=== PATIENT | male | born 1955 | race Caucasian/White ===

== ENCOUNTER → 2017-02-18 | Day surgery (SDC) | payer MEDICARE ==
[~2017-02-18] MED LIST: AMITRIPTYLINE H25 MG PO; AMLODIPINE-OLM1 EAC1 PO; ATORVASTATIN CA20 MG PO; AZOR 10/20 MG T1 TAB PO; LOTREL 10-20 MG1 CAP PO; OMEPRAZOLE20 M2 PO; PRILOSEC40 MG PO; [UNRECOGNIZED DRUG - OTHER]
--- NOTE | ~2017-02-18 | OR ---
Unit #: [id number] #: [id number] Patient: EFRAIN CARVER [id number] [place], [place] [address] [id number] O MR#: [id number] NAME: EFRAIN CARVER. ROOM: Date of Procedure: 02/18/2017 Admission Date: 02/18/2017 Surgeon: Austin Stone M.D. : 1955 Attending Physician: Austin Stone M.D. Primary Care Physician: Ron Nichole M.D. OPERATIVE REPORT PREOPERATIVE DIAGNOSES The patient has presented for colorectal cancer surveillance. He has personal history of removal of colonic adenomas. PROCEDURES PERFORMED Colonoscopy and polypectomy. POSTOPERATIVE DIAGNOSES 1. The patient had a total of six polyps, three in the sigmoid colon, one in the rectum, one in the descending colon, and one in the ascending colon. The polyps ranged in size from 5 mm to a centimeter each. All were removed using snare cautery polypectomy. They were retrieved and sent for histology. 2. Mild sigmoid and descending colon diverticulosis. 3. Rest of the examination up to cecum was normal. The quality of the prep was excellent. RECOMMENDATIONS Follow up the results of polyp histology and consider repeat colonoscopy in 5 years. SEDATION USED MAC. DESCRIPTION OF PROCEDURE Following detailed explanation of potential risks and complications of a colonoscopy, namely perforation, bleeding, and complications related to sedation, the patient was brought to GI lab and laid in the left lateral decubitus position. A digital rectal examination was performed, which was normal. Lubricated tip of the Olympus video colonoscope was inserted through the anus and advanced under direct vision. The scope was advanced past rectosigmoid into descending colon. Multiple small diverticula were noted in this area. In addition, small polyps were also noted along the way. The scope tip was then navigated all the way up to cecum with visualization of the ileocecal valve and the appendiceal orifice. Preparation was excellent with good visualization and photodocumentation was obtained. Successive segments of the colonic mucosa were examined upon withdrawal. Multiple polyps were seen along the way. There was one polyp in the ascending colon, one in descending colon, three in the sigmoid colon, and one in the rectum. The polyps ranged in size from 5 mm to a centimeter each. The largest polyp being in the sigmoid. In addition, the rectal polyp was also noted and removed along with other Unit #: [id number] #: [id number] Patient: EFRAIN CARVER polyps. No additional polyps were noted. Other than the scant diverticula seen in the left side, no other abnormalities were noted. The patient did not have any hemorrhoids at the anal verge. The scope was then withdrawn and the patient returned to the recovery area. He tolerated the procedure without any postprocedure complications. Dictated by... Freya Benedict/carlos TD: 02/18/2017 11:39 JOB #: [id number] OPERATIVE REPORT Page 1 of 1 X Austin Stone MD X PROCEDURE OPERATIVE NOTE
== END | disposition home or self-care (01) ==
LOC: COPS 06:35
DX: Z12.11 Encounter for screening for malignant neoplasm of colon (principal); D12.2 Benign neoplasm of ascending colon; D12.4 Benign neoplasm of descending colon; K63.5 Polyp of colon; K62.1 Rectal polyp; I10 Essential (primary) hypertension; I73.9 Peripheral vascular disease, unspecified; K57.30 Diverticulosis of large intestine without perforation or abscess without bleeding; K21.9 Gastro-esophageal reflux disease without esophagitis; M19.90 Unspecified osteoarthritis, unspecified site; Z86.010 Personal history of colon polyps; Z79.899 Other long term (current) drug therapy; Z89.512 Acquired absence of left leg below knee; Z89.612 Acquired absence of left leg above knee; Z90.81 Acquired absence of spleen
CPT/HCPCS: 88305

== ENCOUNTER → 2017-05-18 | Outpatient (CLI) | payer MEDICARE ==
--- NOTE | ~2017-05-18 | US77 ---
[facility] of [facility] RADIOLOGY TEXT RESULTS PATIENT: EFRAIN CARVER LOCATION: [facility] : 57 UNIT #: [id number] AGE: [address]: Steve Denny MD SEX: M ORDER DR: [id number] [facility]. [place], [place] [address] [id number] O MR#: [id number] Acc #: [id number] NAME: EFRAIN CARVER : 1955 SEX: M STUDY DATE/TIME: 05/18/2017 14:36 UNIT: CGUS ROOM: STUDY DESCRIPTION: US Kidney Bilateral Complete Attending Physician: Steve Denny M.D. Referring Physician: Ron Nichole M.D. Ordering Physician: Steve Denny M.D. Primary Care Physician: Ron Nichole M.D. MEDICAL IMAGING REPORT This report is preliminary unless electronic signature is present EXAM Bilateral renal ultrasound HISTORY Stage III chronic kidney disease. FINDINGS Ultrasound examination of both kidneys demonstrates severe generalized right renal parenchymal atrophy, measuring close to 6 cm in length. There is also moderate to moderately severe generalized left renal parenchymal atrophy, with particular thinning of the lower pole left renal cortex. No hydronephrosis. No perinephric stranding. The bladder was not visible as the patient had apparently recently voided. IMPRESSION 1. No hydronephrosis. 2. Severe right renal parenchymal atrophy. 3. Mild left renal parenchymal atrophy with cortical thinning in the lower pole. 4. Urinary bladder was not visible. Dictated by... Rupert Reilly M.D. THIS IS AN ELECTRONICALLY VERIFIED REPORT Rupert Reilly M.D. at 05/19/2017 2:26 PM LAN/yeny TD: 05/19/2017 11:02 JOB #: [id number] MEDICAL IMAGING REPORT [facility] RADIOLOGY TEXT RESULTS PATIENT: EFRAIN CARVER LOCATION: [facility] : 57 UNIT #: [id number] AGE: [address]: Steve Denny MD SEX: M ORDER DR: Page 1 of 1 COPY
[2017-05-18 15:26] LABS: URINE APPEARANCE CLEAR; URINE BILIRUBIN NEG (NEG); URINE BLOOD NEG (NEG); URINE COLOR YELLOW; URINE GLUCOSE NEG (NEG); URINE KETONE NEG (NEG); URINE LEUKOCYTE ESTERASE NEG (NEG); URINE NITRATE NEG (NEG); URINE PROTEIN NEG (NEG); URINE SPECIFIC GRAVITY 1.014 (1.003-1.035); URINE UROBILINOGEN 0.2 MG/DL (NEG)
[2017-05-18 15:28] LABS: URINE SOURCE CLEAN CATCH
[2017-05-18 15:32] LABS: HEMATOCRIT 49.7 % (38.0-50.0); MEAN CORPUSCULAR HEMOGLOBIN 30.8 PG (28-34); MEAN CORPUSCULAR HGB CONC 34.2 g/dL (30-36); MEAN PLATELET VOLUME 7.1 FL (6.5-11.5); RED BLOOD COUNT 5.52 X10e (3.90-5.60); RED CELL DISTRIBUTION WIDTH 13.9 % (11.0-15.5); WHITE BLOOD COUNT 14.4 X10e3 (4.0-10.5)
[2017-05-18 15:37] LABS: CALCIUM SERUM 9.2 mg/dL (8.4-10.2); CREATININE SERUM 1.6 mg/dL (0.6-1.4); GLOM FILT RATE Estimated 46.2 mL/min (>60); POTASSIUM 4.5 mmol/L (3.5-5.1)
[2017-05-18 16:21] LABS: CREATININE,RANDOM URINE 102 mg/dL; TOTAL PROTEIN,RANDOM URINE 14 mg/dl (<10)
== END | disposition home or self-care (01) ==
LOC: CGUS 14:12
PROVIDERS: Internal Medicine Nephrology
DX: N18.3 Chronic kidney disease, stage 3 (moderate) (principal); N26.1 Atrophy of kidney (terminal)
CPT/HCPCS: 36415; 76770; 80048; 81003; 82570; 84156; 85027